=== PATIENT | female | born 1965 | race Caucasian/White ===

== ENCOUNTER 2019-10-13 10:40 | Day surgery (SDC) | payer BC ==
[2019-10-08 15:17] VITALS: BMI 34.3
[~2019-10-13 10:40] MED LIST: DEXAMETHASONE SOD PHOSPHATE 10 MG/ML 1 ML VIAL IV ONE; HYDROmorphone 0.5 MG/0.5 ML SYRINGE IVP PRN; LACTATED RINGERS 1,000 ML IV SCH; LIDOCAINE 1% 20 ML VIAL (10MG/ML) FOR IV START INTRADERMA PRN; ONDANSETRON 4 MG/2 ML VIAL IVP ONE; Pre Op ABX Message 1 EACH MISC MISCELLANE ONE; fentaNYL (PF) 50 MCG/ML 2 ML AMP IV PRN
[2019-10-13 11:08] VITALS: TEMP 97.3
[2019-10-13] MEDS ORDERED: PROPOFOL 10 MG/ML 20 ML VIAL IV ONE (12:31)
[2019-10-13] MEDS ORDERED: MIDAZOLAM 2 MG/2 ML VIAL ONE (12:31)
[2019-10-13] MEDS ORDERED: fentaNYL (PF) 50 MCG/ML 2 ML AMP ONE (12:31)
[2019-10-13] MEDS ORDERED: KETAMINE 10 MG/ML 20 ML VIAL ONE (12:31)
[2019-10-13] MEDS ORDERED: ceFAZolin 1,000 MG VIAL IVPB ONE (12:45)
[2019-10-13] MEDS ORDERED: ROPIVACAINE 5 MG/ML 30 ML VIAL MISCELLANE ONE ×2 (12:58)
[2019-10-13] MEDS ORDERED: LIDOCAINE 2% (PF) 20 MG/ML 5 ML VIAL SQ ONE ×2 (12:59)
--- NOTE | 2019-10-13 13:49 | P.OP ---
Date of Procedure: 10/13/19 Preoperative Diagnosis: Left moderate to severe hallux rigidus Postoperative Diagnosis: Same Procedure(s) Performed: Left first MTP implant arthroplasty Implants: 8 mm Cartiva Anesthesia: other (sedation plus local) Surgeon: Sid Valero Chrome Worker #1: Andi Sadler Estimated Blood Loss (ml): 5 IV fluids (ml): 1,000 Pathology: none sent Condition: stable Disposition: PACU Indications for Procedure: The patient is a very pleasant previously healthy 54-year-old female was had a long history of problems with both of her feet. She was diagnosed with hallux rigidus in both feet. She was initially managed nonsurgically but then had symptoms refractory to nonsurgical care and requested surgery. We discussed different surgical options. Due to her degree of arthritis I thought she would need more involved treatment of simple cheilectomy. I recommended either a fusion or implant arthroplasty. We discussed the pros and cons of both procedures at length in the office. We discussed that the historical gold standard was effusion. We discussed recently there has renewed interested in implant arthroplasty with five-year outcome data showing comparable results to fusion. After hearing all of her options the patient decided on going forward with implant arthroplasty. We discussed the potential risks and complications of surgery including but not limited to risk of anesthesia, infection, delayed wound healing, damage to local blood vessels or nerves, implant subsidence, stiffness, continued or worsened pain, to satisfaction with surgery, an inability to regain preinjury level of function, need for further surgery including a fusion, DVT, PE, and other medical complications. The patient voiced her understanding of these potential complications also acknowledging the risk of other less common complications. She provided her verbal and written consent to go forward with surgery. Operative Findings: There is full-thickness cartilage loss from the dorsal two thirds of the first metatarsal head. There were large spurs over the distal first metatarsal and base the proximal phalanx. Description of Procedure: The patient was identified in preoperative holding and the correct left leg was marked with my initials. I reviewed the consent form with the patient and her mom. All their questions were answered. The patient was then brought back to the operating room by anesthesia. She was positioned on the OR table where a sedation and preoperative antibiotics were given by anesthesia. The patient had a tourniquet applied to the proximal aspect of her left leg. All bony prominences were well-padded. The left leg was then prepped and draped in the standard sterile fashion. Prior to starting surgery timeout was performed identifying the correct patient, operative extremity, and procedure. The patient's leg was then elevated, exsanguinated with an Esmarch bandage, and tourniquet was inflated to 250 mmHg. Local anesthetic was then used perform a digital block an infiltrate around the dorsal aspect of the first MTP joint. I began by outlining a longitudinal incision to the dorsal aspect of the first MTP joint. Skin incision was made with a scalpel. Dissection was carried down carefully through the subcutissue taking care to not undermine the skin margins. The EHL tendon sheath was incised and the tendon retracted laterally. The capsule the first MTP joint was incised. The joint was circumferentially exposed. There were large dorsal osteophytes off the distal first metatarsal which were contoured with a rongeur taking care to leave healthy bone to accommodate the implant. The base of the proximal phalanx had several loose bodies which were removed with a scalpel and pickups. On inspection of the joint there was full-thickness cartilage loss from the majority the metatarsal head. The metatarsal head was relatively small and I elected to use an 8 mm implant. The guide was placed in the center of the metatarsal head and a guidepin was placed on the central access of the joint. A reamer was used to create a cavity for the implant. All bony debris was irrigated. The bony vault was found to be stable. An 8 mm implant was then press-fit into the vault and found to be stable. Pictures were taken template to the patient's office medical record. The joint was thoroughly irrigated and closed in layers. A sterile dressing was applied. The patient was awoken from her anesthetic and transferred to a rorange having tolerated the procedure well. Plan: The patient is going to discharge home as an outpatient. She is to weight-bear as tolerated in a boot on the left leg. She'll follow-up in 2 weeks for wound check. She does not need x-rays at that time.
[2019-10-13 14:02] VITALS: RESP 18
[2019-10-13 15:30] VITALS: BP 124/80; PULSE 86
== END 2019-10-13 15:25 | disposition home or self-care (01) ==
LOC: OR 10:40
PROVIDERS: ATTEND Orthopaedic Surgery
DX: M20.22 Hallux rigidus, left foot (principal); M19.072 Primary osteoarthritis, left ankle and foot; M24.08 Loose body, other site; M19.071 Primary osteoarthritis, right ankle and foot; M20.21 Hallux rigidus, right foot; E78.5 Hyperlipidemia, unspecified; F39 Unspecified mood [affective] disorder; Z79.899 Other long term (current) drug therapy; Z97.3 Presence of spectacles and contact lenses; Z98.890 Other specified postprocedural states; Z87.2 Personal history of diseases of the skin and subcutaneous tissue; Z88.5 Allergy status to narcotic agent
CPT/HCPCS: 28291; C1713; J2250; J1100; J2405; J0690; J3010; J2795; J2704; J2001

== ENCOUNTER → 2020-02-20 | Outpatient (CLI) | payer BC | END | disposition home or self-care (01) | LOC: LABWHC1 09:54 | PROVIDERS: ATTEND Orthopaedic Surgery | DX: Z11.59 Encounter for screening for other viral diseases (principal) | CPT/HCPCS: 87635 ==

== ENCOUNTER 2020-02-25 05:57 | Day surgery (SDC) | payer BC ==
[2020-02-24 11:56] VITALS: BMI 34.3
[2020-02-25] MEDS ORDERED: LIDOCAINE 1% (10MG/ML) FOR IV START INTRADERMA PRN (06:18)
[2020-02-25] MEDS ORDERED: ONDANSETRON 4 MG/2 ML VIAL IVP ONE (06:18)
[2020-02-25] MEDS ORDERED: LACTATED RINGERS 1,000 ML IV SCH (06:18)
[2020-02-25] MEDS ORDERED: DEXAMETHASONE SOD PHOS (MDV) 100 MG/10 ML VIAL IVP ONE (06:51)
[2020-02-25] MEDS ORDERED: NEOSTIGMINE 1 MG/ML 10 ML VIAL ONE (07:26)
[2020-02-25] MEDS ORDERED: ROCURONIUM BROMIDE 10 MG/ML 5 ML VIAL IV ONE (07:26)
[2020-02-25] MEDS ORDERED: LIDOCAINE 1% INJ 10MG/ML (20 ML MDV) ONE (07:26)
[2020-02-25] MEDS ORDERED: GLYCOPYRROLATE 0.2 MG/ML 2 ML VIAL ONE (07:26)
[2020-02-25] MEDS ORDERED: fentaNYL (PF) 50 MCG/ML 2 ML AMP ONE (07:26)
[2020-02-25] MEDS ORDERED: PROPOFOL 10 MG/ML 20 ML VIAL IV ONE (07:26)
[2020-02-25] MEDS ORDERED: SUCCINYLCHOLINE CHLORIDE 100 MG/5 ML SYR IV ONE (07:26)
[2020-02-25] MEDS ORDERED: MIDAZOLAM 2 MG/2 ML VIAL ONE (07:26)
--- NOTE | 2020-02-25 07:45 | P.HPOR ---
History of Present Illness H&P Date: 02/25/20 The patient is a 54-year-old female who presents today for right foot surgery. She previously had surgery on the left foot and is doing well. She has no complaints other than isolated right first MTP joint pain. Past Medical History Past Medical History: Hyperlipidemia, Osteoarthritis (OA) Additional Past Medical History / Comment(s): bone spurs rt foot History of Any Multi-Drug Resistant Organisms: None Reported Past Surgical History: Breast Surgery, Orthopedic Surgery Additional Past Surgical History / Comment(s): Pilonodial cyst removed, right breast lumpectomy, right shoulder rotator cuff repair, left great toe arthroplasty, left wrist surgery with plate and pins in place, left hand surgery. Past Anesthesia/Blood Transfusion Reactions: Motion Sickness Smoking Status: Never smoker - Past Family History Mother Family Medical History: No Reported History Medications and Allergies Home Medications Medication Instructions Recorded Confirmed Type Atorvastatin [Lipitor] 10 mg PO DAILY 10/08/19 02/25/20 History Levocetirizine Dihydrochloride 5 mg PO QAM 10/08/19 02/25/20 History [Xyzal] Naproxen Sodium [Aleve] 220 mg PO DAILY 02/24/20 02/25/20 History Venlafaxine HCl [Effexor] 75 mg PO QAM 02/24/20 02/25/20 History Allergies Allergy/AdvReac Type Severity Reaction Status Date / Time acetaminophen [From Lortab] Allergy Nausea & Verified 02/25/20 06:19 Vomiting hydrocodone [From Lortab] Allergy Nausea & Verified 02/25/20 06:19 Vomiting Physical Examination The patient is alert and oriented and able to answer questions. A focused exam of the right foot was conducted. On inspection there is superficial abrasion over the dorsal aspect of the first MTP joint. There is a large dorsal osteop hyte. There is pinning crepitance with passive range of motion throughout range of motion motion. Results X-rays of the right foot show diffuse osteoarthritis throughout the first MTP joint and the large dorsal osteophyte. Assessment and Plan Assessment: The patient is a previous healthy 54-year-old female with right moderate to severe hallux rigidus who is status post left first MTP implant arthroplasty using a polyvinyl alcohol implant. Plan: The patient presents today for surgery on her right foot. We'll plan on implant arthroplasty of the right first MTP joint. Having undergone the same procedure on the left she is well aware of the potential risks and complications as well as the postoperative recovery. All the potential risks were discussed with her including the cingulum limited to risk of infection, blood vessel or nerve damage, intraoperative fracture, postoperative fracture, implant subsidence, stiffness, need for further surgery including fusion, DVT, PE, generalized satisfaction of surgery, and possibly loss of life or limb. The patient divided her consent to go forward with elective surgery. We also discussed Mclean virus and how it could potentially impact her recovery. She's been tested for Mclean virus and tested negative. After discussing the risks of jw Mclean virus the patient would like to go forward with surgery. I think it is reasonable to proceed given her understanding of Mclean virus and potential jw. We will take every possible precaution to lower her risk.
[2020-02-25 08:48] VITALS: TEMP 96.7
[2020-02-25] MEDS ORDERED: KETOROLAC 30 MG/ML 1 ML VIAL IVP ONE (08:49)
[2020-02-25] MEDS: HYDROmorphone 1 MG/ML 1 ML SYRINGE IVP ONE ×2 (08:56→09:05)
[2020-02-25] MEDS: fentaNYL (PF) 50 MCG/ML 2 ML AMP IV PRN ×2 (09:11→09:20)
--- NOTE | 2020-02-25 09:16 | P.OP ---
Date of Procedure: 02/25/20 Preoperative Diagnosis: Right hallux rigidus Postoperative Diagnosis: Same Procedure(s) Performed: Right first MTP implant arthroplasty Implants: 8 mm Cartiva Anesthesia: GETA Surgeon: Sid Valero Disc Pad Grinding Machine Feeder #1: Andi Sadler Estimated Blood Loss (ml): 10 IV fluids (ml): 650 Pathology: none sent Condition: stable Disposition: PACU Indications for Procedure: The patient is a previously healthy 54-year-old female who has a long history of problems with bilateral hallux rigidus. She previously had implant arthroplasty on the left and did well. She came and requested the same surgery on the right. Her x-rays showed moderate to severe arthritis. Clinically she had a large dorsal osteophyte and pain throughout the range of motion. We discussed fusion versus implant arthroplasty. She requested implant arthroplasty having previously undergone surgery on her left side. We discussed the potential risks and complications of surgery including but certainly not limited to risk of anesthesia, infection, damage to blood vessels or nerves, intraoperative fracture, postoperative fracture, stiffness, implant subsidence, dissatisfaction with surgical outcome, DVT, PE, other medical complications, and possibly risk of revision to a fusion. She also acknowledges that other less common competitions are possible. We also discussed the unique situation of coronavirus. The patient understands her risk of jw harp virus, but due to her severe symptoms requested going forward with surgery. We'll take every possible percussion to lower her risk of jw harp virus Description of Procedure: The patient was identified In holding and the correct right leg was marked by initials. I reviewed the consent form with the patient and her . All their questions were answered. The patient was then brought back to the operating room. She was positioned on the OR table where general anesthetic and preoperative antibiotics were given. A tourniquet was applied to the proximal aspect of the right leg. The right leg was then prepped and draped in the center sterile fashion. Prior to starting surgery timeout was performed identifying the correct patient, operative extremity, and procedure. The patient's leg was then elevated, exsanguinated with an Esmarch bandage, and the tourniquet was inflated to 250 mmHg. I began by outlining a straight dorsal longitudinal incision over the first MTP joint. Skin incision was made with a scalpel. Dissection was carried down carefully through subcu tissues tissue. The EHL tendon sheath was incised and the tendon retracted laterally. The capsule was incised longitudinally in line with the skin incision. Immediately upon entering the joint there were 2 large loose osteochondral fragments which were sharply debrided. The joint was then inspected. There was a large dorsal osteophyte over the distal first metatarsal which was contoured. There is full thickness cartilage loss on the first metatarsal head. After contouring the first metatarsal head a ruler was used to assess the size. I elected to use an 8 mm implant. A K wire was placed on the central aspect of the first metatarsal. An appropriate reamer was used to create a bony socket for the implant. The wound was thoroughly irrigated and the K wire removed. An 8 mm implant was then press-fit into the bony socket. It had excellent fixation. The joint was brought through range of motion and appeared to be stable. The joint was thoroughly irrigated and closed in layers with 2-0 Monocryl for the capsular layer, 2-0 Monocryl for the deep subcu, and 3-0 nylon for the skin. A sterile dressing was applied. I verified that all instrument, sponge, and sharp counts were correct. The patient was then awoken from her anesthetic, transferred from the or table to [facility], and brought to recovery having tolerated the procedure well. Plan: The patient is going to discharge home as an outpatient. She can weight-bear as tolerated on her right leg in a tall cam boot. She will be for dressing on for 2 days. After 2 days she can change her dressing. She'll be given a prescription for Fitzhugh for pain and aspirin for DVT prophylaxis.
[2020-02-25] MEDS: HYDROmorphone 0.5 MG/0.5 ML SYRINGE IVP PRN ×2 (09:17→09:23)
[2020-02-25 09:54] VITALS: RESP 16
[2020-02-25 10:55] VITALS: BP 115/68; PULSE 88
== END 2020-02-25 11:15 | disposition home or self-care (01) ==
LOC: OR 05:57
PROVIDERS: ATTEND Orthopaedic Surgery
DX: M20.21 Hallux rigidus, right foot (principal); M19.071 Primary osteoarthritis, right ankle and foot; E78.5 Hyperlipidemia, unspecified; Z88.5 Allergy status to narcotic agent; Z79.1 Long term (current) use of non-steroidal anti-inflammatories (NSAID); Z79.899 Other long term (current) drug therapy; Z98.890 Other specified postprocedural states
CPT/HCPCS: 28291; C1713; J2250; J2710; J0690; J2405; J2001; J3010; J1885; J1170 ×2; J1100; J0330; J2704